=== PATIENT | male | born 1950 | race Two or more races ===

== ENCOUNTER 2018-11-06 13:07 | Inpatient (IN) | payer MEDICARE, OTHER ==
[~2018-11-06] VITALS: Ht 172.7 cm; Wt 52.5 kg
--- NOTE | 2018-11-06 13:50 | NUR ---
IT RECRUITER: PT TO ROOM FROM LOBBY
[2018-11-06] MEDS ORDERED: SODIUM CHLORIDE FLUSH 10ML SYR IVF ONE (14:30)
[2018-11-06] MEDS ORDERED: SODIUM CHLORIDE 0.9% 1,000ML IVBOLUS ONE (14:30)
[2018-11-06 15:07] LABS: BASOPHILS # (AUTO) 0.02 x10^3/uL (0-0.1); BASOPHILS % (AUTO) 0 % (0-1); EOSINOPHILS % (AUTO) 1 % (1-7); LYMPHOCYTES # (AUTO) 1.24 x10^3/uL (1-3.4); LYMPHOCYTES % (AUTO) 15 % (22-44); MD NO; MEAN CORPUSCULAR HEMOGLOBIN 31.8 pg (27.5-34.5); MEAN CORPUSCULAR HGB CONC 33.5 g/dL (33.2-36.2); MEAN PLATELET VOLUME 7.3 fL (7.4-10.4); MONOCYTES # (AUTO) 0.61 x10^3/uL (0.2-0.8); MONOCYTES % (AUTO) 8 % (2-9); NEUTROPHILS % (AUTO) 76 % (42-75); PLATELET COUNT 350 x10^3/uL (130-400); RED BLOOD COUNT 5.07 x10^6/uL (4.38-5.82); RED CELL DISTRIBUTION WIDTH 15.2 % (9.4-14.8)
[2018-11-06 15:13] LABS: ALBUMIN 3.4 g/dL (3.4-5.0); ANION GAP 6 mmol/L (5-15); CALCIUM 11.9 mg/dL (8.5-10.1); CHLORIDE 94 mmol/L (98-107)
[2018-11-06 15:19] LABS: ALANINE AMINOTRANSFERASE 25 U/L (12-78); ALKALINE PHOSPHATASE 92 U/L (45-117); BILIRUBIN,TOTAL 0.7 mg/dL (0.2-1.0); CREATININE 1.09 mg/dL (0.7-1.3); TOTAL PROTEIN 8.9 g/dL (6.4-8.2); TROPONIN I < 0.015 ng/mL (0.000-0.045)
[2018-11-06] MEDS ORDERED: ONDANSETRON 2MG/ML, 2ML ONE (15:33)
[2018-11-06] MEDS ORDERED: MORPHINE SULFATE 4 MG/ML, 1ML ONE (15:33)
[2018-11-06] MEDS ORDERED: POTASSIUM CHLORIDE 20 MEQ TAB.ER.PRT ONE ×2 (15:34→17:19)
[2018-11-06] MEDS ORDERED: MAGNESIUM SULFATE PMX 2GM/50ML 0 ML ONE (15:34)
[2018-11-06] MEDS ORDERED: POTASSIUM CHLORIDE 10% 40 MEQ/30 ML UDC ONE (15:36)
[2018-11-06] MEDS: MORPHINE SULFATE 4 MG/ML, 1ML IVPush PRN ×2 (15:39→21:45)
[2018-11-06] MEDS ORDERED: POTASSIUM CHLORIDE 40 MEQ in SODIUM CHLORIDE 0.9% 1,000 ML IV ONE (15:46)
[2018-11-06] MEDS ORDERED: MAGNESIUM SULFATE 1 GM in SODIUM CHLORIDE 0.9% 50 ML IV ONE (16:00)
[2018-11-06] MEDS ORDERED: ONDANSETRON 2MG/ML, 2ML IVPush ONE (16:00)
[2018-11-06] MEDS ORDERED: POTASSIUM CHLORIDE 10% 40 MEQ/30 ML UDC PO ONE (16:00)
--- NOTE | 2018-11-06 16:05 | NUR ---
pt laying on gurney awake & mre comfortable, responds approp ot staff, NAD, comfort measures provided, call light within reach.
[2018-11-06] MEDS ORDERED: POTASSIUM CHLORIDE 20 MEQ TAB.ER.PRT PO ONE (16:30)
[2018-11-06] MEDS ORDERED: IBUPROFEN 600 MG TABLET PO PRN (16:30)
[2018-11-06] MEDS ORDERED: SODIUM CHLORIDE FLUSH 10ML SYR IVF PRN (16:30)
[2018-11-06] MEDS ORDERED: morphine SULFATE 10 MG/ML, 1ML IVPush PRN (16:30)
--- NOTE | 2018-11-06 17:07 | NUR ---
Pt to be admitted to [facility], room 402-1. Report called to
[2018-11-06] MEDS ORDERED: OMNIPAQUE 350 MG/ML, 100ML BOTTLE ONE (17:10)
[2018-11-06] MEDS: ENOXAPARIN 40 MG/0.4 ML SQ SCH (18:23)
[2018-11-06] MEDS: NICOTINE 14MG/24 HR PATCH.TD24 TD SCH (18:23)
[2018-11-06 19:39] VITALS: BP 183/77
[2018-11-06] MEDS: AMLODIPINE 5 MG TABLET PO SCH (20:15)
[2018-11-06] MEDS: OXYcodone IR 5MG TABLET PO PRN (20:15)
[2018-11-06] MEDS: D5%-0.45NACL+KCL 20MEQ 1,000 ML IV SCH (20:45)
[2018-11-07] MEDS: OXYcodone IR 5MG TABLET PO PRN ×2 (00:16→10:58)
[2018-11-07 00:32] VITALS: BP 166/95
[2018-11-07] MEDS: D5%-0.45NACL+KCL 20MEQ 1,000 ML IV SCH ×2 (05:43→21:38)
[2018-11-07 05:51] LABS: BASOPHILS # (AUTO) 0.02 x10^3/uL (0-0.1); BASOPHILS % (AUTO) 0 % (0-1); EOSINOPHILS # (AUTO) 0.07 x10^3/uL (0-0.4); EOSINOPHILS % (AUTO) 1 % (1-7); LYMPHOCYTES % (AUTO) 15 % (22-44); MD NO; MEAN CORPUSCULAR HEMOGLOBIN 31.5 pg (27.5-34.5); MEAN CORPUSCULAR HGB CONC 33.3 g/dL (33.2-36.2); MEAN CORPUSCULAR VOLUME 94.5 fL (81-97); MEAN PLATELET VOLUME 7.2 fL (7.4-10.4); MONOCYTES # (AUTO) 0.64 x10^3/uL (0.2-0.8); MONOCYTES % (AUTO) 8 % (2-9); NEUTROPHILS # (AUTO) 6.14 x10^3/uL (1.8-6.8); NEUTROPHILS % (AUTO) 76 % (42-75); PLATELET COUNT 336 x10^3/uL (130-400)
[2018-11-07 06:02] LABS: ANION GAP 5 mmol/L (5-15); CALCIUM 11.8 mg/dL (8.5-10.1); CHLORIDE 102 mmol/L (98-107)
[2018-11-07 06:03] LABS: CREATININE 0.99 mg/dL (0.7-1.3)
[2018-11-07 07:16] VITALS: BP 153/98
[2018-11-07] MEDS: AMLODIPINE 5 MG TABLET PO SCH (08:55)
[2018-11-07] MEDS ORDERED: POTASSIUM CHLORIDE 40 MEQ in SODIUM CHLORIDE 0.9% 500 ML IV ONE ×2 (09:30→14:30)
[2018-11-07 12:07] VITALS: BP 161/96
[2018-11-07] MEDS: NICOTINE 14MG/24 HR PATCH.TD24 TD SCH (17:06)
[2018-11-07] MEDS: ENOXAPARIN 40 MG/0.4 ML SQ SCH (17:06)
[2018-11-07 19:36] VITALS: BP 173/104
[2018-11-07] MEDS: TEMAZEPAM 15 MG CAPSULE PO PRN (20:02)
[2018-11-07] MEDS: hydrALAzine 20 MG/ML, 1ML IVPush PRN (20:03)
[2018-11-07] MEDS: ACETAMINOPHEN 325 MG TABLET PO PRN (22:08)
[2018-11-07 22:51] VITALS: BP 143/103
[2018-11-08 02:16] VITALS: BP 151/88
[2018-11-08 05:19] LABS: BASOPHILS # (AUTO) 0.01 x10^3/uL (0-0.1); BASOPHILS % (AUTO) 0 % (0-1); EOSINOPHILS % (AUTO) 1 % (1-7); LYMPHOCYTES # (AUTO) 1.34 x10^3/uL (1-3.4); LYMPHOCYTES % (AUTO) 16 % (22-44); MD NO; MEAN CORPUSCULAR HEMOGLOBIN 31.6 pg (27.5-34.5); MEAN CORPUSCULAR HGB CONC 33.2 g/dL (33.2-36.2); MEAN PLATELET VOLUME 7.3 fL (7.4-10.4); MONOCYTES # (AUTO) 0.76 x10^3/uL (0.2-0.8); MONOCYTES % (AUTO) 9 % (2-9); NEUTROPHILS # (AUTO) 5.98 x10^3/uL (1.8-6.8); NEUTROPHILS % (AUTO) 73 % (42-75); PLATELET COUNT 321 x10^3/uL (130-400); RED BLOOD COUNT 4.85 x10^6/uL (4.38-5.82); RED CELL DISTRIBUTION WIDTH 15.8 % (9.4-14.8)
[2018-11-08 05:28] LABS: CHLORIDE 110 mmol/L (98-107)
[2018-11-08 05:35] LABS: ALANINE AMINOTRANSFERASE 24 U/L (12-78); ALBUMIN 3.3 g/dL (3.4-5.0); ALKALINE PHOSPHATASE 87 U/L (45-117); ANION GAP 5 mmol/L (5-15); BILIRUBIN,TOTAL 0.7 mg/dL (0.2-1.0); CALCIUM 11.8 mg/dL (8.5-10.1); CREATININE 0.85 mg/dL (0.7-1.3); TOTAL PROTEIN 8.7 g/dL (6.4-8.2)
[2018-11-08 07:10] VITALS: BP 158/95
[2018-11-08] MEDS: AMLODIPINE 5 MG TABLET PO SCH (09:01)
[2018-11-08] MEDS ORDERED: POTASSIUM CHLORIDE 20 MEQ TAB.ER.PRT PO ONE (10:00)
[2018-11-08] MEDS ORDERED: GADOBUTROL 7.5 MMOL/7.5 ML PFS ONE (11:42)
[2018-11-08] MEDS ORDERED: FENTANYL PF 100 MCG/2ML ONE (12:10)
[2018-11-08 15:07] VITALS: BP 162/102
[2018-11-08] MEDS: NICOTINE 14MG/24 HR PATCH.TD24 TD SCH (15:18)
[2018-11-08] MEDS: hydrALAzine 20 MG/ML, 1ML IVPush PRN ×2 (15:18→19:49)
[2018-11-08] MEDS ORDERED: ONDANSETRON ODT 4 MG ONE (16:26)
[2018-11-08] MEDS: ONDANSETRON 2MG/ML, 2ML IVPush PRN (16:28)
[2018-11-08] MEDS: D5%-0.45NACL+KCL 20MEQ 1,000 ML IV SCH (17:21)
[2018-11-08 19:38] VITALS: BP 160/99
[2018-11-08] MEDS: TEMAZEPAM 15 MG CAPSULE PO PRN (19:49)
[2018-11-08 23:33] VITALS: BP 129/83
[2018-11-09 02:00] VITALS: BP 158/91
[2018-11-09] MEDS: ONDANSETRON 2MG/ML, 2ML IVPush PRN (02:21)
[2018-11-09 04:00] LABS: BASOPHILS # (AUTO) 0.03 x10^3/uL (0-0.1); BASOPHILS % (AUTO) 0 % (0-1); EOSINOPHILS # (AUTO) 0.07 x10^3/uL (0-0.4); EOSINOPHILS % (AUTO) 1 % (1-7); LYMPHOCYTES # (AUTO) 1.12 x10^3/uL (1-3.4); LYMPHOCYTES % (AUTO) 12 % (22-44); MD NO; MEAN CORPUSCULAR HGB CONC 32.7 g/dL (33.2-36.2); MEAN CORPUSCULAR VOLUME 94.8 fL (81-97); MEAN PLATELET VOLUME 7.3 fL (7.4-10.4); MONOCYTES % (AUTO) 9 % (2-9); NEUTROPHILS # (AUTO) 7.01 x10^3/uL (1.8-6.8); NEUTROPHILS % (AUTO) 78 % (42-75); PLATELET COUNT 307 x10^3/uL (130-400); RED BLOOD COUNT 4.56 x10^6/uL (4.38-5.82); RED CELL DISTRIBUTION WIDTH 16.1 % (9.4-14.8)
[2018-11-09 04:14] LABS: CHLORIDE 111 mmol/L (98-107)
[2018-11-09 04:22] LABS: ALANINE AMINOTRANSFERASE 42 U/L (12-78); ALKALINE PHOSPHATASE 81 U/L (45-117); ANION GAP 6 mmol/L (5-15); BILIRUBIN,TOTAL 0.5 mg/dL (0.2-1.0); CALCIUM 11.1 mg/dL (8.5-10.1); CREATININE 0.84 mg/dL (0.7-1.3); TOTAL PROTEIN 7.8 g/dL (6.4-8.2)
[2018-11-09] MEDS: AMLODIPINE 5 MG TABLET PO SCH (09:00)
[2018-11-09] MEDS: D5%-0.45NACL+KCL 20MEQ 1,000 ML IV SCH (09:30)
[2018-11-09] MEDS: ENOXAPARIN 40 MG/0.4 ML SQ SCH (10:00)
[2018-11-09] MEDS ORDERED: POTASSIUM CHLORIDE 20 MEQ TAB.ER.PRT PO ONE (10:00)
[2018-11-09] MEDS: NICOTINE 14MG/24 HR PATCH.TD24 TD SCH (16:30)
[2018-11-09] MEDS: METOPROLOL TARTRATE 25 MG TABLET PO SCH (18:00)
[2018-11-09] MEDS: ACETAMINOPHEN 325 MG TABLET PO PRN (22:02)
[2018-11-09] MEDS: TEMAZEPAM 15 MG CAPSULE PO PRN (22:02)
[2018-11-10 00:38] VITALS: BP 171/96
[2018-11-10] MEDS: hydrALAzine 20 MG/ML, 1ML IVPush PRN (00:51)
[2018-11-10] MEDS: D5%-0.45NACL+KCL 20MEQ 1,000 ML IV SCH ×2 (01:12→18:35)
[2018-11-10 07:44] LABS: ALBUMIN 3.2 g/dL (3.4-5.0); ANION GAP 7 mmol/L (5-15); CALCIUM 11.4 mg/dL (8.5-10.1); CHLORIDE 110 mmol/L (98-107)
[2018-11-10 07:47] LABS: ALANINE AMINOTRANSFERASE 46 U/L (12-78); ALKALINE PHOSPHATASE 84 U/L (45-117); BILIRUBIN,TOTAL 0.6 mg/dL (0.2-1.0); CREATININE 0.84 mg/dL (0.7-1.3); TOTAL PROTEIN 8.1 g/dL (6.4-8.2)
[2018-11-10] MEDS: METOPROLOL TARTRATE 25 MG TABLET PO SCH ×2 (08:00→18:00)
[2018-11-10] MEDS ORDERED: METOPROLOL 1 MG/ML, 5ML IVPush PRN (08:30)
[2018-11-10] MEDS: AMLODIPINE 5 MG TABLET PO SCH (09:00)
[2018-11-10] MEDS ORDERED: POTASSIUM CHLORIDE 20 MEQ TAB.ER.PRT PO ONE (10:00)
[2018-11-10] MEDS: ENOXAPARIN 40 MG/0.4 ML SQ SCH (10:00)
[2018-11-10] MEDS: NICOTINE 14MG/24 HR PATCH.TD24 TD SCH (16:30)
[2018-11-10 20:57] VITALS: BP 160/83
[2018-11-11 00:40] VITALS: BP 108/81
[2018-11-11] MEDS: METOPROLOL TARTRATE 25 MG TABLET PO SCH ×2 (05:34→17:15)
[2018-11-11] MEDS: AMLODIPINE 5 MG TABLET PO SCH (09:00)
[2018-11-11] MEDS: ENOXAPARIN 40 MG/0.4 ML SQ SCH (09:55)
[2018-11-11] MEDS: D5%-0.45NACL+KCL 20MEQ 1,000 ML IV SCH (09:58)
[2018-11-11] MEDS: NICOTINE 14MG/24 HR PATCH.TD24 TD SCH (17:15)
[2018-11-11 19:54] VITALS: BP 183/94
[2018-11-11] MEDS: hydrALAzine 20 MG/ML, 1ML IVPush PRN (20:26)
[2018-11-12] MEDS: D5%-0.45NACL+KCL 20MEQ 1,000 ML IV SCH (03:08)
[2018-11-12 03:46] VITALS: BP 107/64
[2018-11-12] MEDS: METOPROLOL TARTRATE 25 MG TABLET PO SCH ×2 (06:00→18:38)
[2018-11-12] MEDS: AMLODIPINE 5 MG TABLET PO SCH (08:26)
[2018-11-12 08:59] VITALS: BP 105/83
[2018-11-12 09:03] LABS: MEAN CORPUSCULAR HGB CONC 32.6 g/dL (33.2-36.2); MEAN PLATELET VOLUME 7.6 fL (7.4-10.4); PLATELET COUNT 260 x10^3/uL (130-400); RED BLOOD COUNT 4.64 x10^6/uL (4.38-5.82); RED CELL DISTRIBUTION WIDTH 15.8 % (9.4-14.8)
[2018-11-12 09:05] LABS: ALANINE AMINOTRANSFERASE 43 U/L (12-78); ALBUMIN 3.3 g/dL (3.4-5.0); ANION GAP 9 mmol/L (5-15); CALCIUM 11.7 mg/dL (8.5-10.1); CHLORIDE 111 mmol/L (98-107); CREATININE 0.85 mg/dL (0.7-1.3)
[2018-11-12 09:07] LABS: ALKALINE PHOSPHATASE 88 U/L (45-117); BILIRUBIN,TOTAL 0.7 mg/dL (0.2-1.0); TOTAL PROTEIN 8.6 g/dL (6.4-8.2)
[2018-11-12 09:31] LABS: BASOPHILS # (AUTO) 0.01 x10^3/uL (0-0.1); BASOPHILS % (AUTO) 0 % (0-1); EOSINOPHILS # (AUTO) 0.01 x10^3/uL (0-0.4); EOSINOPHILS % (AUTO) 0 % (1-7); LYMPHOCYTES % (AUTO) 9 % (22-44); MD SCAN; MONOCYTES # (AUTO) 1.13 x10^3/uL (0.2-0.8); MONOCYTES % (AUTO) 7 % (2-9); NEUTROPHILS % (AUTO) 84 % (42-75)
[2018-11-12] MEDS: ENOXAPARIN 40 MG/0.4 ML SQ SCH (09:32)
[2018-11-12] MEDS ORDERED: POTASSIUM CHLORIDE 60 MEQ in SODIUM CHLORIDE 0.9% 500 ML IV ONE (15:30)
[2018-11-12 15:55] VITALS: BP 124/79
[2018-11-12] MEDS: NICOTINE 14MG/24 HR PATCH.TD24 TD SCH (16:09)
[2018-11-12 16:53] LABS: THYROID STIMULATING HORMONE 0.592 mIU/L (0.358-3.740)
[2018-11-12 18:39] VITALS: BP 134/82
[2018-11-12] MEDS: ACETAMINOPHEN 325 MG TABLET PO PRN (20:57)
[2018-11-12 21:00] LABS: MICROSCOPIC NOT IND
[2018-11-12 21:11] LABS: CULTURE INDICATED? NO
[2018-11-12] MEDS ORDERED: POTASSIUM CHLORIDE 20 MEQ in DEXTROSE 5% 1,000 ML IV SCH (21:30)
[2018-11-13] MEDS ORDERED: TRAZODONE 50MG TABLET PO ONE (01:30)
[2018-11-13 01:35] VITALS: BP 145/81
[2018-11-13 05:13] LABS: ALBUMIN 2.6 g/dL (3.4-5.0); ANION GAP 5 mmol/L (5-15); CALCIUM 10.6 mg/dL (8.5-10.1); CHLORIDE 111 mmol/L (98-107)
[2018-11-13 05:18] LABS: ALANINE AMINOTRANSFERASE 32 U/L (12-78); ALKALINE PHOSPHATASE 70 U/L (45-117); BILIRUBIN,TOTAL 0.6 mg/dL (0.2-1.0); TOTAL PROTEIN 6.9 g/dL (6.4-8.2)
[2018-11-13 05:25] LABS: BASOPHILS % (AUTO) 0 % (0-1); EOSINOPHILS # (AUTO) 0.06 x10^3/uL (0-0.4); EOSINOPHILS % (AUTO) 0 % (1-7); LYMPHOCYTES % (AUTO) 10 % (22-44); MD NO; MEAN CORPUSCULAR HEMOGLOBIN 31.7 pg (27.5-34.5); MEAN CORPUSCULAR HGB CONC 33.4 g/dL (33.2-36.2); MEAN CORPUSCULAR VOLUME 94.8 fL (81-97); MEAN PLATELET VOLUME 7.5 fL (7.4-10.4); MONOCYTES # (AUTO) 0.49 x10^3/uL (0.2-0.8); MONOCYTES % (AUTO) 4 % (2-9); NEUTROPHILS # (AUTO) 11.87 x10^3/uL (1.8-6.8); NEUTROPHILS % (AUTO) 87 % (42-75); PLATELET COUNT 202 x10^3/uL (130-400); RED BLOOD COUNT 3.91 x10^6/uL (4.38-5.82); RED CELL DISTRIBUTION WIDTH 15.6 % (9.4-14.8)
[2018-11-13] MEDS: METOPROLOL TARTRATE 25 MG TABLET PO SCH ×2 (06:28→17:34)
[2018-11-13] MEDS ORDERED: POTASSIUM CHLORIDE 60 MEQ in SODIUM CHLORIDE 0.9% 1,000 ML IV ONE (06:30)
[2018-11-13] MEDS: AMLODIPINE 5 MG TABLET PO SCH (08:03)
[2018-11-13 08:36] VITALS: BP 130/92
[2018-11-13] MEDS: LIDODERM 5% PATCH TD SCH ×2 (09:00→09:30)
[2018-11-13] MEDS ORDERED: LIDODERM 5% PATCH TD ONE (09:28)
[2018-11-13] MEDS: ENOXAPARIN 40 MG/0.4 ML SQ SCH (09:44)
[2018-11-13] MEDS: POTASSIUM CHLORIDE 20 MEQ in SODIUM CHLORIDE 0.45% 1,000 ML IV SCH ×2 (13:38→22:37)
[2018-11-13] MEDS: LIDODERM 5% PATCH TD PRN (13:55)
[2018-11-13] MEDS: NICOTINE 14MG/24 HR PATCH.TD24 TD SCH (17:34)
[2018-11-13 19:40] VITALS: BP 149/88
[2018-11-14 02:19] VITALS: BP 161/70
[2018-11-14 05:36] LABS: BASOPHILS # (AUTO) 0.04 x10^3/uL (0-0.1); BASOPHILS % (AUTO) 0 % (0-1); EOSINOPHILS # (AUTO) 0.15 x10^3/uL (0-0.4); EOSINOPHILS % (AUTO) 2 % (1-7); LYMPHOCYTES # (AUTO) 1.52 x10^3/uL (1-3.4); LYMPHOCYTES % (AUTO) 15 % (22-44); MD NO; MEAN CORPUSCULAR HGB CONC 33.5 g/dL (33.2-36.2); MEAN CORPUSCULAR VOLUME 95.4 fL (81-97); MEAN PLATELET VOLUME 7.7 fL (7.4-10.4); MONOCYTES # (AUTO) 0.63 x10^3/uL (0.2-0.8); MONOCYTES % (AUTO) 6 % (2-9); NEUTROPHILS # (AUTO) 7.89 x10^3/uL (1.8-6.8); NEUTROPHILS % (AUTO) 77 % (42-75); PLATELET COUNT 226 x10^3/uL (130-400); RED BLOOD COUNT 4.29 x10^6/uL (4.38-5.82); RED CELL DISTRIBUTION WIDTH 15.6 % (9.4-14.8)
[2018-11-14 05:39] LABS: CHLORIDE 109 mmol/L (98-107)
[2018-11-14 06:12] VITALS: BP 164/83
[2018-11-14] MEDS: METOPROLOL TARTRATE 25 MG TABLET PO SCH ×2 (06:13→18:22)
[2018-11-14 06:15] LABS: ALANINE AMINOTRANSFERASE 31 U/L (12-78); ALBUMIN 2.7 g/dL (3.4-5.0); ALKALINE PHOSPHATASE 82 U/L (45-117); ANION GAP 7 mmol/L (5-15); BILIRUBIN,TOTAL 0.3 mg/dL (0.2-1.0); CALCIUM 10.2 mg/dL (8.5-10.1); CREATININE 0.73 mg/dL (0.7-1.3); TOTAL PROTEIN 7.5 g/dL (6.4-8.2)
[2018-11-14] MEDS ORDERED: POTASSIUM CHLORIDE 60 MEQ in SODIUM CHLORIDE 0.9% 1,000 ML IV ONE (07:00)
[2018-11-14 07:05] VITALS: BP 159/79
[2018-11-14] MEDS: AMLODIPINE 5 MG TABLET PO SCH (09:13)
[2018-11-14] MEDS: ENOXAPARIN 40 MG/0.4 ML SQ SCH (09:13)
[2018-11-14] MEDS ORDERED: PHARMACY INSTRUCTION MC PRN (13:00)
[2018-11-14 13:25] VITALS: BP 153/72
[2018-11-14] MEDS ORDERED: BISACODYL 10 MG SUPP PR PRN (15:00)
[2018-11-14] MEDS ORDERED: SINCALIDE (KINEVAC) 5 MCG ONE (15:07)
[2018-11-14] MEDS: ACETAMINOPHEN 325 MG TABLET PO PRN (16:46)
[2018-11-14] MEDS: NICOTINE 14MG/24 HR PATCH.TD24 TD SCH (16:47)
[2018-11-14] MEDS: LIDODERM 5% PATCH TD PRN (16:47)
[2018-11-14] MEDS: POLYETHYLENE GLYCOL 17 GM PACKET PO PRN (16:48)
[2018-11-14] MEDS: DOCUSATE 100 MG CAPSULE PO PRN (18:21)
[2018-11-14 18:38] VITALS: BP 121/70
[2018-11-14] MEDS: MELATONIN 3 MG TABLET PO SCH (21:56)
[2018-11-14] MEDS: POTASSIUM CHLORIDE 20 MEQ in SODIUM CHLORIDE 0.45% 1,000 ML IV SCH (22:04)
[2018-11-15 02:20] VITALS: BP 129/89
[2018-11-15] MEDS: ACETAMINOPHEN 325 MG TABLET PO PRN ×4 (02:46→21:19)
[2018-11-15] MEDS: QUETIAPINE 25MG TABLET PO PRN ×2 (03:33→13:20)
[2018-11-15] MEDS: METOPROLOL TARTRATE 25 MG TABLET PO SCH ×2 (05:06→17:51)
[2018-11-15 05:42] LABS: BASOPHILS # (AUTO) 0.02 x10^3/uL (0-0.1); BASOPHILS % (AUTO) 0 % (0-1); EOSINOPHILS # (AUTO) 0.17 x10^3/uL (0-0.4); EOSINOPHILS % (AUTO) 2 % (1-7); LYMPHOCYTES # (AUTO) 1.42 x10^3/uL (1-3.4); LYMPHOCYTES % (AUTO) 16 % (22-44); MD NO; MEAN CORPUSCULAR HEMOGLOBIN 31.8 pg (27.5-34.5); MEAN CORPUSCULAR HGB CONC 33.4 g/dL (33.2-36.2); MEAN CORPUSCULAR VOLUME 95.3 fL (81-97); MEAN PLATELET VOLUME 7.7 fL (7.4-10.4); MONOCYTES # (AUTO) 0.71 x10^3/uL (0.2-0.8); MONOCYTES % (AUTO) 8 % (2-9); NEUTROPHILS # (AUTO) 6.76 x10^3/uL (1.8-6.8); NEUTROPHILS % (AUTO) 74 % (42-75); PLATELET COUNT 227 x10^3/uL (130-400); RED BLOOD COUNT 4.06 x10^6/uL (4.38-5.82); RED CELL DISTRIBUTION WIDTH 15.9 % (9.4-14.8)
[2018-11-15 05:51] LABS: ALBUMIN 2.4 g/dL (3.4-5.0); ANION GAP 6 mmol/L (5-15); CALCIUM 10.1 mg/dL (8.5-10.1); CHLORIDE 108 mmol/L (98-107); CREATININE 0.63 mg/dL (0.7-1.3)
[2018-11-15 07:36] VITALS: BP 127/84
[2018-11-15] MEDS: AMLODIPINE 5 MG TABLET PO SCH (09:00)
[2018-11-15] MEDS: ENOXAPARIN 40 MG/0.4 ML SQ SCH (09:50)
[2018-11-15] MEDS: POTASSIUM CHLORIDE 20 MEQ in SODIUM CHLORIDE 0.45% 1,000 ML IV SCH ×2 (10:16→21:21)
[2018-11-15 12:47] VITALS: BP 133/82
[2018-11-15] MEDS: HALOPERIDOL 5 MG/ML IM PRN (14:28)
[2018-11-15] MEDS: NICOTINE 14MG/24 HR PATCH.TD24 TD SCH (16:46)
[2018-11-15] MEDS: MELATONIN 3 MG TABLET PO SCH (21:19)
[2018-11-15 21:48] VITALS: BP 135/75
[2018-11-16] MEDS: HALOPERIDOL 5 MG/ML IM PRN ×2 (01:21→12:00)
[2018-11-16] MEDS: QUETIAPINE 25MG TABLET PO PRN ×2 (02:31→14:41)
[2018-11-16] MEDS: TEMAZEPAM 15 MG CAPSULE PO PRN (02:31)
[2018-11-16 03:24] VITALS: BP 147/81
[2018-11-16 05:49] VITALS: BP 155/87
[2018-11-16] MEDS: METOPROLOL TARTRATE 25 MG TABLET PO SCH ×2 (05:50→17:06)
[2018-11-16] MEDS: POTASSIUM CHLORIDE 20 MEQ in SODIUM CHLORIDE 0.45% 1,000 ML IV SCH ×2 (09:37→21:02)
[2018-11-16] MEDS: AMLODIPINE 5 MG TABLET PO SCH (09:37)
[2018-11-16] MEDS: ENOXAPARIN 40 MG/0.4 ML SQ SCH (09:37)
[2018-11-16] MEDS: ACETAMINOPHEN 325 MG TABLET PO PRN ×3 (10:29→21:03)
[2018-11-16 13:20] VITALS: BP 130/74
[2018-11-16] MEDS: NICOTINE 14MG/24 HR PATCH.TD24 TD SCH (17:06)
[2018-11-16 18:40] VITALS: BP 94/62
[2018-11-16] MEDS: MELATONIN 3 MG TABLET PO SCH (21:03)
[2018-11-16 21:06] VITALS: BP 137/77
[2018-11-16] MEDS: LIDODERM 5% PATCH TD PRN (21:12)
[2018-11-17 00:01] VITALS: BP 137/82
[2018-11-17] MEDS: ACETAMINOPHEN 325 MG TABLET PO PRN ×4 (01:13→20:28)
[2018-11-17 05:58] LABS: BASOPHILS # (AUTO) 0.05 x10^3/uL (0-0.1); BASOPHILS % (AUTO) 1 % (0-1); EOSINOPHILS # (AUTO) 0.22 x10^3/uL (0-0.4); EOSINOPHILS % (AUTO) 2 % (1-7); LYMPHOCYTES # (AUTO) 1.43 x10^3/uL (1-3.4); LYMPHOCYTES % (AUTO) 14 % (22-44); MD NO; MEAN CORPUSCULAR HEMOGLOBIN 31.9 pg (27.5-34.5); MEAN CORPUSCULAR HGB CONC 33.9 g/dL (33.2-36.2); MEAN PLATELET VOLUME 6.8 fL (7.4-10.4); MONOCYTES # (AUTO) 0.62 x10^3/uL (0.2-0.8); MONOCYTES % (AUTO) 6 % (2-9); NEUTROPHILS # (AUTO) 8.05 x10^3/uL (1.8-6.8); NEUTROPHILS % (AUTO) 78 % (42-75); PLATELET COUNT 266 x10^3/uL (130-400); RED CELL DISTRIBUTION WIDTH 15.8 % (9.4-14.8)
[2018-11-17 06:13] VITALS: BP 131/86
[2018-11-17 06:16] LABS: ALBUMIN 2.4 g/dL (3.4-5.0); ANION GAP 3 mmol/L (5-15); CALCIUM 9.8 mg/dL (8.5-10.1); CHLORIDE 108 mmol/L (98-107)
[2018-11-17] MEDS: METOPROLOL TARTRATE 25 MG TABLET PO SCH ×2 (06:17→16:43)
[2018-11-17 06:19] LABS: ALANINE AMINOTRANSFERASE 26 U/L (12-78); ALKALINE PHOSPHATASE 81 U/L (45-117); BILIRUBIN,TOTAL 0.3 mg/dL (0.2-1.0); CREATININE 0.63 mg/dL (0.7-1.3); TOTAL PROTEIN 6.8 g/dL (6.4-8.2)
[2018-11-17] MEDS: POTASSIUM CHLORIDE 20 MEQ in SODIUM CHLORIDE 0.45% 1,000 ML IV SCH ×2 (07:14→17:14)
[2018-11-17 07:50] VITALS: BP 119/74
[2018-11-17] MEDS ORDERED: GLUCAGON 1 MG IM PRN (08:30)
[2018-11-17] MEDS ORDERED: DEXTROSE 4 GM TAB.CHEW PO PRN (08:30)
[2018-11-17] MEDS ORDERED: DEXTROSE 50%, 50ML SYRINGE IVPush PRN (08:30)
[2018-11-17] MEDS: AMLODIPINE 5 MG TABLET PO SCH (09:18)
[2018-11-17] MEDS: SODIUM CHLORIDE FLUSH 10ML SYR IVF SCH ×2 (09:18→20:27)
[2018-11-17] MEDS: ENOXAPARIN 40 MG/0.4 ML SQ SCH (09:19)
[2018-11-17 13:17] VITALS: BP 103/67
[2018-11-17] MEDS: NICOTINE 14MG/24 HR PATCH.TD24 TD SCH (16:30)
[2018-11-17 18:53] VITALS: BP 111/71
[2018-11-17] MEDS: MELATONIN 3 MG TABLET PO SCH (20:28)
[2018-11-18] MEDS: ACETAMINOPHEN 325 MG TABLET PO PRN ×4 (01:11→22:01)
[2018-11-18] MEDS: NICOTINE 14MG/24 HR PATCH.TD24 TD SCH (02:11)
[2018-11-18] MEDS: POTASSIUM CHLORIDE 20 MEQ in SODIUM CHLORIDE 0.45% 1,000 ML IV SCH (03:13)
[2018-11-18 05:15] VITALS: BP 133/76
[2018-11-18] MEDS: METOPROLOL TARTRATE 25 MG TABLET PO SCH ×2 (05:20→18:39)
[2018-11-18 05:26] LABS: BASOPHILS # (AUTO) 0.01 x10^3/uL (0-0.1); BASOPHILS % (AUTO) 0 % (0-1); EOSINOPHILS # (AUTO) 0.21 x10^3/uL (0-0.4); EOSINOPHILS % (AUTO) 2 % (1-7); LYMPHOCYTES # (AUTO) 1.24 x10^3/uL (1-3.4); LYMPHOCYTES % (AUTO) 13 % (22-44); MD NO; MEAN CORPUSCULAR HEMOGLOBIN 31.6 pg (27.5-34.5); MEAN CORPUSCULAR HGB CONC 33.2 g/dL (33.2-36.2); MEAN CORPUSCULAR VOLUME 95.2 fL (81-97); MEAN PLATELET VOLUME 6.9 fL (7.4-10.4); MONOCYTES # (AUTO) 0.31 x10^3/uL (0.2-0.8); MONOCYTES % (AUTO) 3 % (2-9); NEUTROPHILS % (AUTO) 81 % (42-75); PLATELET COUNT 270 x10^3/uL (130-400)
[2018-11-18 05:43] LABS: ALBUMIN 2.4 g/dL (3.4-5.0); ANION GAP 5 mmol/L (5-15); CALCIUM 9.6 mg/dL (8.5-10.1); CHLORIDE 107 mmol/L (98-107)
[2018-11-18 05:47] LABS: ALANINE AMINOTRANSFERASE 20 U/L (12-78); ALKALINE PHOSPHATASE 75 U/L (45-117); BILIRUBIN,TOTAL 0.1 mg/dL (0.2-1.0); CREATININE 0.67 mg/dL (0.7-1.3); TOTAL PROTEIN 6.9 g/dL (6.4-8.2)
[2018-11-18 06:44] VITALS: BP 122/70
[2018-11-18] MEDS: ENOXAPARIN 40 MG/0.4 ML SQ SCH (08:49)
[2018-11-18] MEDS: AMLODIPINE 5 MG TABLET PO SCH (08:49)
[2018-11-18] MEDS: SODIUM CHLORIDE FLUSH 10ML SYR IVF SCH ×2 (08:49→21:16)
[2018-11-18 13:17] VITALS: BP 123/72
[2018-11-18] MEDS: POLYETHYLENE GLYCOL 17 GM PACKET PO PRN (13:50)
[2018-11-18] MEDS: DOCUSATE 100 MG CAPSULE PO PRN (13:50)
[2018-11-18 15:34] VITALS: BP 131/88
[2018-11-18 19:40] VITALS: BP 124/75
[2018-11-18] MEDS: MELATONIN 3 MG TABLET PO SCH (21:15)
[2018-11-19 00:43] VITALS: BP 130/80
[2018-11-19] MEDS: ACETAMINOPHEN 325 MG TABLET PO PRN ×2 (04:24→15:18)
[2018-11-19 05:34] LABS: BASOPHILS # (AUTO) 0.01 x10^3/uL (0-0.1); BASOPHILS % (AUTO) 0 % (0-1); EOSINOPHILS # (AUTO) 0.13 x10^3/uL (0-0.4); EOSINOPHILS % (AUTO) 1 % (1-7); LYMPHOCYTES # (AUTO) 1.17 x10^3/uL (1-3.4); LYMPHOCYTES % (AUTO) 10 % (22-44); MD NO; MEAN CORPUSCULAR HEMOGLOBIN 31.9 pg (27.5-34.5); MEAN CORPUSCULAR HGB CONC 33.8 g/dL (33.2-36.2); MEAN CORPUSCULAR VOLUME 94.4 fL (81-97); MEAN PLATELET VOLUME 6.6 fL (7.4-10.4); MONOCYTES # (AUTO) 0.28 x10^3/uL (0.2-0.8); MONOCYTES % (AUTO) 2 % (2-9); NEUTROPHILS # (AUTO) 9.81 x10^3/uL (1.8-6.8); NEUTROPHILS % (AUTO) 86 % (42-75); PLATELET COUNT 334 x10^3/uL (130-400); RED BLOOD COUNT 4.25 x10^6/uL (4.38-5.82); RED CELL DISTRIBUTION WIDTH 15.7 % (9.4-14.8)
[2018-11-19 05:38] LABS: ALANINE AMINOTRANSFERASE 30 U/L (12-78); ALBUMIN 2.8 g/dL (3.4-5.0); ANION GAP 3 mmol/L (5-15); CALCIUM 10.6 mg/dL (8.5-10.1); CHLORIDE 105 mmol/L (98-107); CREATININE 0.75 mg/dL (0.7-1.3)
[2018-11-19 05:40] LABS: ALKALINE PHOSPHATASE 88 U/L (45-117); BILIRUBIN,TOTAL 0.4 mg/dL (0.2-1.0); TOTAL PROTEIN 7.9 g/dL (6.4-8.2)
[2018-11-19] MEDS: METOPROLOL TARTRATE 25 MG TABLET PO SCH (06:13)
[2018-11-19 07:16] VITALS: BP 128/74
[2018-11-19] MEDS: SODIUM CHLORIDE FLUSH 10ML SYR IVF SCH (09:00)
[2018-11-19] MEDS: AMLODIPINE 5 MG TABLET PO SCH (10:17)
[2018-11-19] MEDS: ENOXAPARIN 40 MG/0.4 ML SQ SCH (10:18)
[2018-11-19] MEDS ORDERED: QUET25TA7 PO (15:01)
[2018-11-19] MEDS ORDERED: MELA3TAB2 PO (15:01)
[2018-11-19] MEDS ORDERED: METO25TA35 PO (15:01)
[2018-11-19] MEDS ORDERED: AMLO-150 PO (15:01)
[2018-11-19] MEDS: NICOTINE 14MG/24 HR PATCH.TD24 TD SCH (15:21)
[2018-11-19 15:38] VITALS: BP 108/73
[2018-11-19 17:06] VITALS: BP 133/87
== END 2018-11-19 17:15 | DRG 180 ==
LOC: ED 16:10 → EDIP 16:11 → ED 16:56 → 4WST 18:11 → 3NW 11-18 14:29
PROVIDERS: ADMIT Hospitalist; ATTEND Hospitalist
PROC: 0BBF3ZX Excision of Right Lower Lung Lobe, Percutaneous Approach, Diagnostic (ICD-10-PCS; principal; 2018-11-08)
DX: C34.90 Malignant neoplasm of unspecified part of unspecified bronchus or lung (principal); G93.41 Metabolic encephalopathy; E43 Unspecified severe protein-calorie malnutrition; E87.1 Hypo-osmolality and hyponatremia; Z68.1 Body mass index [BMI] 19.9 or less, adult; E86.0 Dehydration; E83.52 Hypercalcemia; D64.9 Anemia, unspecified; M54.9 Dorsalgia, unspecified; R10.9 Unspecified abdominal pain; D72.829 Elevated white blood cell count, unspecified; E87.6 Hypokalemia; F17.210 Nicotine dependence, cigarettes, uncomplicated; I10 Essential (primary) hypertension; K59.00 Constipation, unspecified; Z51.5 Encounter for palliative care; Z66 Do not resuscitate; Z78.1 Physical restraint status; Z80.0 Family history of malignant neoplasm of digestive organs; Z80.1 Family history of malignant neoplasm of trachea, bronchus and lung; Z88.8 Allergy status to other drugs, medicaments and biological substances
CPT/HCPCS: 32405; 36415; 70551; 70552; 71045; 71046; 71260; 74018; 74177; 76700; 77012; 78226; 80048; 80053; 81003; 82040; 82140; 82306; 82330; 82397; 82607; 82962; 83735; 83970; 84100; 84132; 84443; 84484; 85025; 87040; 88305; 93005; 96361; 96374; 99285; A9585; G0378; J1650; J2405; J3010; J3475; J3480; J7070; Q9967; A9537; C9898; J0360; J1630; J2270; J2805; J7030; J7040

== ENCOUNTER 2018-12-03 08:36 | Outpatient (CLI) | payer MEDICARE ==
[~2018-12-03 08:36] MED LIST: AMLO-150 PO; MELA3TAB2 PO; METO25TA35 PO; QUET25TA7 PO
== END 2018-12-03 23:59 | disposition home or self-care (01) ==
LOC: ROC 08:36
PROVIDERS: ATTEND Radiology Radiation Oncology
DX: Z02.9 Encounter for administrative examinations, unspecified (principal)